=== PATIENT | male | born 1975 | race Caucasian/White ===

== ENCOUNTER 2018-06-06 17:11 | Inpatient (IN) | payer MEDICAID, OTHER ==
[~2018-06-06] VITALS: Ht 182.9 cm; Wt 61.7 kg
[~2018-06-06 17:11] MED LIST: ACYC400T PO; DARU400T PO; EMTR1TAB5 PO; RITO100T PO
[2018-06-06] MEDS ORDERED: DiphenhydrAMINE HCL 50 MG/ML VIAL ONE (17:59)
[2018-06-06] MEDS ORDERED: LORazepam 2 MG/ML VIAL ONE (17:59)
[2018-06-06] MEDS ORDERED: HALOPERIDOL LACTATE 5 MG/ML VIAL ONE (17:59)
[2018-06-06] MEDS ORDERED: HALOPERIDOL 5 MG TABLET PO ONE (18:00)
[2018-06-06] MEDS ORDERED: LORazepam 2 MG TABLET PO ONE (18:00)
[2018-06-06] MEDS ORDERED: LORazepam 2 MG TABLET PO PRN (20:45)
[2018-06-06] MEDS ORDERED: ZOLPIDEM TARTRATE 10 MG TABLET PO PRN (20:45)
[2018-06-06] MEDS ORDERED: OLANZapine 5 MG RAPDIS TABLET PO PRN (20:45)
[2018-06-07] VITALS (7 sets, daily range): BP systolic 103–125; BP diastolic 61–77
[2018-06-07] MEDS: ACYCLOVIR 800 MG TABLET PO SCH ×4 (00:48→23:39)
[2018-06-07] MEDS ORDERED: PNEUMOCOCCAL VACCINE POLYVALENT 0.5 ML VIAL [PPSV23] IM ONE (03:00)
[2018-06-07] MEDS ORDERED: DARUNAVIR ETHANOLATE 800 MG TABLET PO SCH (07:30)
[2018-06-07] MEDS: RITONAVIR 100 MG TABLET PO SCH (08:05)
[2018-06-07] MEDS: EMTRICITABINE/TENOFOVIR 200-300 MG TABLET PO SCH (08:05)
[2018-06-07] MEDS ORDERED: LOPERAMIDE HCL 2 MG CAPSULE PO PRN (11:45)
[2018-06-07] MEDS ORDERED: DIAZEPAM 10 MG TABLET PO PRN (11:45)
[2018-06-07] MEDS ORDERED: TUBERCULIN, PURIFIED PROTEIN DERIVATIVE 5 TU/0.1 ML SYG ID ONE (11:45)
[2018-06-07] MEDS ORDERED: GuaiFENesin/D-METHORPHAN [SUGAR-FREE] 200-20MG/10 ML SYRUP UDCUP PO PRN (11:45)
[2018-06-07] MEDS ORDERED: HydrOXYzine PAMOATE 50 MG CAPSULE PO PRN (11:45)
[2018-06-07] MEDS ORDERED: PROMETHAZINE HCL 25 MG TABLET PO PRN (11:45)
[2018-06-07] MEDS ORDERED: CYANOCOBALAMIN 1,000 MCG/ML VIAL IM ONE (11:45)
[2018-06-07] MEDS: THIAMINE HCL 100 MG TABLET PO SCH (19:58)
[2018-06-07] MEDS ORDERED: OLANZapine 10 MG RAPDIS TABLET PO SCH (21:00)
[2018-06-08] VITALS: BP 116/70
[2018-06-08 04:00] VITALS: BP 100/74
[2018-06-08] MEDS ORDERED: DIAZEPAM 10 MG TABLET PO PRN (07:00)
[2018-06-08 08:49] VITALS: BP 110/50
[2018-06-08] MEDS: DARUNAVIR ETHANOLATE 800 MG TABLET PO SCH ×2 (09:17→17:20)
[2018-06-08] MEDS: FLUoxetine HCL 20 MG CAPSULE PO SCH (09:18)
[2018-06-08] MEDS: RITONAVIR 100 MG TABLET PO SCH (09:18)
[2018-06-08] MEDS: ACYCLOVIR 800 MG TABLET PO SCH ×3 (09:19→23:39)
[2018-06-08] MEDS: THIAMINE HCL 100 MG TABLET PO SCH ×2 (09:19→17:19)
[2018-06-08] MEDS: EMTRICITABINE/TENOFOVIR 200-300 MG TABLET PO SCH (09:20)
[2018-06-08] MEDS: NALTREXONE HCL 50 MG TABLET PO SCH (09:20)
[2018-06-08] MEDS: MULTIVITAMINS WITH MINERALS, THERAPEUTIC TABLET PO SCH (09:20)
[2018-06-08] MEDS: DIAZEPAM 10 MG TABLET PO SCH ×4 (09:21→20:34)
[2018-06-08] MEDS: FOLIC ACID 1 MG TABLET PO SCH (09:22)
[2018-06-08] MEDS ORDERED: FLUO-191 PO (12:00)
[2018-06-08] MEDS ORDERED: OLAN10TA22 PO (12:00)
[2018-06-08] MEDS ORDERED: NALT50TA PO (12:00)
[2018-06-08 12:39] VITALS: BP 110/50
[2018-06-08 19:00] VITALS: BP 116/73
[2018-06-08] MEDS ORDERED: OLANZapine 10 MG RAPDIS TABLET PO SCH (21:00)
[2018-06-09] MEDS: DARUNAVIR ETHANOLATE 800 MG TABLET PO SCH ×2 (06:51→17:15)
[2018-06-09] MEDS: FOLIC ACID 1 MG TABLET PO SCH (08:39)
[2018-06-09] MEDS: MULTIVITAMINS WITH MINERALS, THERAPEUTIC TABLET PO SCH (08:39)
[2018-06-09] MEDS: FLUoxetine HCL 20 MG CAPSULE PO SCH (08:40)
[2018-06-09] MEDS: THIAMINE HCL 100 MG TABLET PO SCH ×2 (08:40→17:16)
[2018-06-09] MEDS: ACYCLOVIR 800 MG TABLET PO SCH ×2 (08:40→17:15)
[2018-06-09] MEDS: RITONAVIR 100 MG TABLET PO SCH (08:41)
[2018-06-09] MEDS: NALTREXONE HCL 50 MG TABLET PO SCH (08:41)
[2018-06-09] MEDS: EMTRICITABINE/TENOFOVIR 200-300 MG TABLET PO SCH (08:41)
[2018-06-09] MEDS: DIAZEPAM 10 MG TABLET PO SCH ×5 (09:00→21:00)
[2018-06-09 10:13] VITALS: BP 118/69
[2018-06-09 11:30] VITALS: BP 118/69
[2018-06-09 18:45] VITALS: BP 121/79
[2018-06-09] MEDS ORDERED: OLANZapine 10 MG RAPDIS TABLET PO SCH (21:00)
[2018-06-09 22:55] VITALS: BP 114/74
[2018-06-10] MEDS: ACYCLOVIR 800 MG TABLET PO SCH ×3 (00:08→16:45)
[2018-06-10 02:08] VITALS: BP 108/73
[2018-06-10] MEDS ORDERED: DIAZEPAM 5 MG TABLET PO PRN (07:00)
[2018-06-10] MEDS: DARUNAVIR ETHANOLATE 800 MG TABLET PO SCH ×2 (07:02→16:45)
[2018-06-10 08:27] VITALS: BP 96/86
[2018-06-10] MEDS: RITONAVIR 100 MG TABLET PO SCH (09:06)
[2018-06-10] MEDS: EMTRICITABINE/TENOFOVIR 200-300 MG TABLET PO SCH (09:06)
[2018-06-10] MEDS: NALTREXONE HCL 50 MG TABLET PO SCH (09:06)
[2018-06-10] MEDS: FLUoxetine HCL 20 MG CAPSULE PO SCH (09:09)
[2018-06-10] MEDS: THIAMINE HCL 100 MG TABLET PO SCH ×2 (09:09→16:44)
[2018-06-10] MEDS: DIAZEPAM 5 MG TABLET PO SCH ×3 (09:09→16:45)
[2018-06-10] MEDS: FOLIC ACID 1 MG TABLET PO SCH (09:09)
[2018-06-10] MEDS: MULTIVITAMINS WITH MINERALS, THERAPEUTIC TABLET PO SCH (09:09)
[2018-06-11] MEDS ORDERED: DIAZEPAM 5 MG TABLET PO PRN (07:00)
== END 2018-06-10 16:45 | disposition home or self-care (01) | DRG 750 ==
LOC: EMS 17:11 → 3EC 22:33
PROVIDERS: ADMIT Psychiatry & Neurology Psychiatry; ATTEND Psychiatry & Neurology Psychiatry
DX: F25.9 Schizoaffective disorder, unspecified (principal); Z91.19 Patient's noncompliance with other medical treatment and regimen; B00.9 Herpesviral infection, unspecified; F15.90 Other stimulant use, unspecified, uncomplicated; Z53.20 Procedure and treatment not carried out because of patient's decision for unspecified reasons; F17.210 Nicotine dependence, cigarettes, uncomplicated; Z90.81 Acquired absence of spleen; Z72.89 Other problems related to lifestyle; Z79.899 Other long term (current) drug therapy; Z90.49 Acquired absence of other specified parts of digestive tract
CPT/HCPCS: 90471; 99285; J1200; J1630; J2060; J3420